=== PATIENT | male | born 2005 | race Hispanic/Latino ===

== ENCOUNTER 2025-03-21 09:18 | Emergency (ER) | payer OTHER ==
[~2025-03-21] VITALS: Ht 177.8 cm; Wt 69.5 kg
[2025-03-21] MEDS: ONDANSETRON 4MG ORAL DISINTEGRATING TAB PO ONE (11:17)
[2025-03-21] MEDS: ACETAMINOPHEN 500 MG TAB PO ONE (11:18)
[2025-03-21] MEDS ORDERED: ONDA-282 PO (12:22)
[2025-03-21 12:32] VITALS: BP 149/74; TEMP 99.1; O2SAT 99
== END 2025-03-21 12:33 | disposition home or self-care (01) ==
LOC: M ED 09:18
DX: U07.1 COVID-19 (principal); Z79.899 Other long term (current) drug therapy